=== PATIENT | female | born 1995 | race Caucasian/White ===

== ENCOUNTER 2017-03-11 18:21 | Emergency (ER) | payer SELFPAY ==
[~2017-03-11 18:21] MED LIST: IBUPROFEN800 MG PO; NO HOME MEDICATION; PERMETHRIN60 G1 TP; PRENATAL1 EACH PO; VITAMIN D1000 UNI1 PO; ZANTAC150 MG PO; ZOLOFT100 M1 PO
[2017-03-11] MEDS ORDERED: NORCO 5-325 TA1 EACH PO (20:25)
== END 2017-03-11 20:38 ==
LOC: EDMED 18:21
DX: S09.90XA Unspecified injury of head, initial encounter (principal); S02.5XXA Fracture of tooth (traumatic), initial encounter for closed fracture; S70.01XA Contusion of right hip, initial encounter; S00.83XA Contusion of other part of head, initial encounter; S10.93XA Contusion of unspecified part of neck, initial encounter; S80.12XA Contusion of left lower leg, initial encounter; S80.11XA Contusion of right lower leg, initial encounter; S60.229A Contusion of unspecified hand, initial encounter; Y04.0XXA Assault by unarmed brawl or fight, initial encounter; Z88.0 Allergy status to penicillin